=== PATIENT | male | born 1990 | race Caucasian/White ===

== ENCOUNTER 2019-09-07 20:47 | Emergency (ER) | payer OTHER ==
[2019-09-07 20:54] VITALS: BP 138/85; PULSE 79; RESP 20; TEMP 98
[2019-09-07] MEDS ORDERED: Acetaminophen-Codeine 300-30mg TAB PO STA (21:16)
[2019-09-07] MEDS ORDERED: DIAZEPAM 5 MG TAB PO STA (21:16)
[2019-09-07] MEDS ORDERED: ACET/COD 300 MG/30 MG STARTER PACK 6 TAB BTL PO STA (22:06)
[2019-09-07] MEDS ORDERED: CYCLOBENZAPRINE 10MG STARTER 3 TAB BTL PO STA (22:06)
--- NOTE | 2019-09-07 22:06 | ED ---
General Adult HPI - General Chief complaint: Back Pain/Injury Stated complaint: Back injury Time Seen by Provider: 09/07/19 20:58 Source: patient, RN notes reviewed, old records reviewed Mode of arrival: ambulatory Limitations: no limitations - History of Present Illness Initial comments: 29-year-old male patient presents ED chief complaint of muscle strain and spasm. Patient reports that he exercised today for the first time approximately month. Patient reports that he was doing overhead dumbbell press and curls. Patient reports that he felt somewhat tight after exercising. Patient reports that he sat on the couch for approximately half an hour and then went to order picker/assembler his 3-year-old child when he felt a severe muscle spasm in his right rhomboid region. Denies any other complaints any other injury. Systemic: Pt denies fatigue, fever/chills, rash. Pt denies weakness, night sweats, weight loss. Neuro: Pt denies headache, visual disturbances, syncope or pre-syncope. HEENT: Pt denies ocular discharge or irritation, otalgia, rhinorrhea, pharyngitis or notable lymphadenopathy. Cardiopulmonary: Pt denies chest pain, SOB, heart palpitations, dyspnea on exertion. Abdominal/GI: Pt denies abdominal pain, n/v/d. : Pt denies dysuria, burning w/ urination, frequency/urgency. Denies new onset urinary or bowel incontinence. MSK: Pt denies myalgia, loss of strength or function in extremities. Neuro: Pt denies new onset weakness, paresthesias. - Related Data Home Medications Medication Instructions Recorded Confirmed No Known Home Medications 09/07/19 09/07/19 Allergies Allergy/AdvReac Type Severity Reaction Status Date / Time No Known Allergies Allergy Verified 09/07/19 20:54 Review of Systems ROS Statement: Those systems with pertinent positive or pertinent negative responses have been documented in the HPI. ROS Other: All systems not noted in ROS Statement are negative. Past Medical History Past Medical History: No Reported History History of Any Multi-Drug Resistant Organisms: None Reported Past Surgical History: Orthopedic Surgery Past Psychological History: No Psychological Hx Reported Smoking Status: Never smoker Past Alcohol Use History: Occasional Past Drug Use History: None Reported General Exam - General Exam Comments Initial Comments: Constitutional: NAD, AOX3, Pt has pleasant affect. HEENT: NC/AT, trachea midline, neck supple, no lymphadenopathy. Posterior pharynx non erythematous, without exudates. External ears appear normal, without discharge. Mucous membranes moist. Eyes PERRLA, EOM intact. There is no scleral icterus. No pallor noted. Cardiopulmonary: RRR, no murmurs, rubs or gallops, no JVD noted. Lungs CTAB in anterior and posterior graf. No peripheral edema. Abdominal exam: Abdomen soft and non-distended. Abdomen non-tender to palpation in all 4 quadrants. Bowel sounds active in LLQ. No hepatosplenomegaly. No ecchymosis Neuro: CN II-XII grossly intact. No nuchal rigidity. No raccon eyes, no rivera sign, no hemotympanum. No cervical spinal tenderness. MSK: Parathoracic muscles mildly tender to palpation. No skin changes. Range of motion of upper extremity slightly limited secondary to discomfort. No posterior calf tenderness bilaterally, homans sign negative bilaterally. Posterior tibialis and radial pulse +2 bilaterally. Sensation intact in upper and lower extremities. Full active ROM in lower extremities, 5/5 stregnth. Limitations: no limitations Course Vital Signs 09/07/19 20:51 Temperature 98.0 F Pulse Rate 79 Respiratory 20 Rate Blood Pressure 138/85 O2 Sat by Pulse 98 Oximetry Medical Decision Making - Medical Decision Making 29-year-old male patient presents ED chief complaint of muscle strain and spasm. Patient reports that he exercised today for the first time approximately month. Patient reports that he was doing overhead dumbbell press and curls. Patient reports that he felt somewhat tight after exercising. Patient reports that he sat on the couch for approximately half an hour and then went to order picker/assembler his 3-year-old child when he felt a severe muscle spasm in his right rhomboid region. Denies any other complaints any other injury. Pt VSS, afebrile. Physical exam displayed: Parathoracic muscles mildly tender to palpation. No skin changes. Range of motion of upper extremity slightly limited secondary to discomfort. Patient experienced considerable improvement with Tylenol, Valium. Patient will be discharged with muscle relaxers and Tylenol 3. Patient will return to ER if condition worsens in any way. Otherwise will follow up with primary care provider. Denies patient to monitor for signs symptoms of rhabdomyolysis. Patient verbalized understanding. Case discussed with Dr. Pozo. Disposition Clinical Impression: Muscle strain Disposition: HOME SELF-CARE Condition: Stable Instructions (If sedation given, give patient instructions): Muscle Strain (ED) Additional Instructions: Follow-up with primary care provider tomorrow. Use muscle relaxers as needed for muscle spasm. Monitor urine. If symptoms worsen in anyway or dark urine is identified return to emergency department. Is patient prescribed a controlled substance at d/c from ED?: No Referrals: None,Stated [Primary Care Provider] - 1-2 days [facility] [NON-STAFF] - 1-2 days
== END 2019-09-07 22:18 | disposition home or self-care (01) ==
LOC: EC 20:47
DX: S39.012A Strain of muscle, fascia and tendon of lower back, initial encounter (principal); X58.XXXA Exposure to other specified factors, initial encounter
CPT/HCPCS: 99283